=== PATIENT | male | born 1995 | race African-American/Black ===

== ENCOUNTER 2019-01-03 03:14 | Emergency (ER) | payer SELFPAY ==
[~2019-01-03] VITALS: Ht 170.2 cm; Wt 68.0 kg
[2019-01-03] MEDS ORDERED: CLINDAMYCIN 900MG IV 50 ML IV ONE (04:00)
[2019-01-03] MEDS ORDERED: KETOROLAC TROMETH 15 mg/ml 1ML VL IV ONE (04:00)
[2019-01-03] MEDS ORDERED: KETOROLAC TROMETH 30 MG/ML 1ML VIAL ONE (04:16)
[2019-01-03 05:39] VITALS: BP 117/70
== END 2019-01-03 05:30 | disposition home or self-care (01) ==
LOC: ER 03:15
DX: L03.114 Cellulitis of left upper limb (principal)
CPT/HCPCS: 73090; 96365; 96366; 96375; 99284; J1885; J3490; J7030

== ENCOUNTER 2020-06-01 19:57 | Emergency (ER) | payer SELFPAY ==
[~2020-06-01] VITALS: Ht 172.7 cm; Wt 74.4 kg
[2020-06-01 20:23] VITALS: BP 135/89
== END 2020-06-02 05:21 | disposition left against medical advice (07) ==
LOC: ER 19:57
DX: K08.89 Other specified disorders of teeth and supporting structures (principal); Z53.21 Procedure and treatment not carried out due to patient leaving prior to being seen by health care provider

== ENCOUNTER 2020-10-09 00:41 | Emergency (ER) | payer SELFPAY ==
[~2020-10-09] VITALS: Ht 170.2 cm; Wt 81.6 kg
[2020-10-09 00:51] VITALS: BP 145/92
== END 2020-10-09 04:22 | disposition left against medical advice (07) ==
LOC: ER 01:02
DX: M25.512 Pain in left shoulder (principal); Z53.21 Procedure and treatment not carried out due to patient leaving prior to being seen by health care provider
CPT/HCPCS: 73030